=== PATIENT | female | born 1975 | race Hispanic/Latino ===

== ENCOUNTER 2016-05-31 06:51 | Day surgery (SDC) | payer OTHER ==
[2016-05-31 07:06] VITALS: BMI 21.6
[2016-05-31] MEDS ORDERED: Bupivacaine 0.5% Inj(30mL) ONE (07:50)
[2016-05-31 08:05] LABS: BASO # 0.1 K/uL (0.0-0.2); EOS # 0.2 K/uL (0.0-0.7); HEMATOCRIT 37.4 % (34.0-47.0); LYMPH # 1.6 K/uL (1.0-4.3); LYMPH % 30.1 % (20.0-40.0); MEAN CELL VOLUME 94.9 fl (81.0-99.0); MEAN CORPUSCULAR HEMOGLOBIN 31.9 pg (27.0-31.0); MEAN CORPUSCULAR HGB CONC 33.6 g/dL (33.0-37.0); MEAN PLATELET VOLUME 7.5 fl (7.2-11.7); MONO # 0.5 K/uL (0.0-0.8); MONO % 8.6 % (0.0-10.0); NEUT # 3.1 K/uL (1.8-7.0); NEUT % 57.3 % (50.0-75.0); NRBC % 0.1 % (0.0-0.0); WHITE BLOOD COUNT 5.3 K/uL (4.8-10.8)
[2016-05-31] MEDS ORDERED: Rocuronium 10 mg/ml (5 ml) ONE (09:15)
[2016-05-31] MEDS ORDERED: Midazolam 2 MG/2 ML VIAL ONE (09:15)
[2016-05-31] MEDS ORDERED: Succinylcholine 200 mg/10 ml Inj IV ONE (09:15)
[2016-05-31] MEDS ORDERED: ePHEDrine 50 mg/ml Inj ONE (09:15)
[2016-05-31] MEDS ORDERED: Propofol 10 mg/ml Inj (20 ML) ONE ×2 (09:15→10:40)
[2016-05-31] MEDS ORDERED: Neostigmine Methylsulfate 3mg/3ml Syringe IV ONE (09:18)
[2016-05-31] MEDS ORDERED: Lidocaine 4% (Laryng-O-Jet) Kit MM ONE (09:25)
[2016-05-31] MEDS ORDERED: Lactated Ringer's 1,000 ML IV ONE ×2 (09:35→09:45)
[2016-05-31] MEDS ORDERED: Desflurane Inhalation Anesthetic Liq (240 ml) ONE (10:02)
[2016-05-31] MEDS ORDERED: HYDROmorphone 0.5 mg/0.5 ml ISec IVP PRN (11:11)
[2016-05-31] MEDS ORDERED: Lactated Ringer's 1,000 ML IV SCH (11:15)
[2016-05-31 13:08] VITALS: RESP 18; O2SAT 100
[2016-05-31 16:05] VITALS: BP 113/65; PULSE 66; TEMP 98.5
[2016-05-31] MEDS ORDERED: Oxycodone/Acetaminophen 5/325 mg Tab PO PRN (16:42)
--- NOTE | 2016-06-14 15:56 | OP ---
PROCEDURE DATE: 05/31/2016 SURGEON: Uvaldo Alanis MD SPECIALTY PERSON: Baron Mendieta MD PREOPERATIVE DIAGNOSES: Dysmenorrhea, dyspareunia, pelvic pain, rule out endometriosis and septate u terus. PROCEDURE PERFORMED: Cystoscopy with retrograde ureteral stenting and injection of fluorescent dye, retrograde; hysteroscopy, operative, with a hysteroscopic metroplasty and excision of septum; a lapar oscopy, robotic; and excision of endometriosis. ANESTHESIA: General endotracheal. ESTIMATED BLOOD LOSS: Minimal. COMPLICATIONS: None. DESCRIPTION OF PROCEDURE: After adequate anesthesia was obtained, the patient was placed in the dors al lithotomy position. She was prepped and draped. The surgeon was gowned and gloved. Attention wa s in the vaginal area where a cystoscope was inserted into the bladder. The bladder was distended wi th 200 mL of fluid and the bladder appeared to be normal with a small amount of cystitis cystica noti tank at the introitus. Each ureter was cannulated one at a time utilizing a 5-Tajik stent and 0.5 mL of IC-Green were injected in a retrograde fashion. At this point, the cystoscope was removed and Fo serina was placed in the bladder. Attention was in the vaginal area where the anterior lip of the cervi x was grasped. The cervix was gently dilated and a hysteroscope was inserted into the uterine cavity . The uterine cavity appeared to have a small septum at the fundus which had been already observed i n the preoperative evaluation. Utilizing the hysteroscopic scissors, the septum was excised. There was no bleeding and no other damage to the uterus. At this point, the hysteroscope was removed. A u terine manipulator was placed in the uterus. Attention was on the abdomen where an incision was made on the umbilicus utilizing the classic open laparoscopy technique. The abdominal cavity was entered . After this was done under direct visualization, additional trocars were placed, left upper quadran t, left lower quadrant and left mid quadrant, and the da Sumanth robot was docked. The pelvis was insp ected with great care and utilizing fluorescence, a suspicious airway was identified on the left pelv ic sidewall overlying the ureter. It was raised white lesions. The retroperitoneal space was entere d utilizing the robotic scissors and after dissecting off the ureter very gently, an area of peritone um was excised which was suspicious for endometriosis with an atypical colored lesion. An additional area was also excised on the right side and also sent to pathology. At this point, it was checked f or hemostasis, it appeared to be excellent. The robot was undocked and the abdomen was desufflated. It defects were closed in layers utilizing PDS for the fascia and 4-0 Monocryl for the skin. The in struments were also removed from the vagina, which appeared to be hemostatic. At the end of the proc edure, all tapes and instrument counts were correct. Please note that Dr. Mendieta was present thro ughout the procedure and his role was essential in executing this procedure for both retraction and i n suctioning and usage of the da Sumanth robot. Uvaldo Alanis MD cc: [id number] TT: 06/14/2016 15:55:49 an
== END 2016-05-31 17:15 | disposition home or self-care (01) ==
LOC: H.OPSURG 06:51
PROVIDERS: ATTEND Obstetrics & Gynecology Reproductive Endocrinology
DX: N80.0 Endometriosis of uterus (principal); R10.2 Pelvic and perineal pain; N94.19 Other specified dyspareunia; N94.6 Dysmenorrhea, unspecified